=== PATIENT | male | born 1940 | race Caucasian/White ===

== ENCOUNTER → 2018-05-14 12:49 | Outpatient (CLI) | payer MEDICARE, OTHER, SELFPAY ==
--- NOTE | 2018-05-14 | DI.CT.S_ITS ---
PROCEDURE: CT SINUS SCREEN WO CON INDICATIONS: Hypertrophy of Nasal Turbinates TECHNIQUE: Noncontrast 3.0 mm axial images acquired from the frontal sinuses to the mid-sella, with coronal and sagittal reformats. For radiation dose reduction, the following was used: automated exposure control, adjustment of mA and/or kV according to patient size. COMPARISON: None. FINDINGS: Image quality: Excellent. Maxillary Sinuses: No bony remodeling or destruction. Sinuses are clear. Ethmoid Air Cells: No bony remodeling or destruction. Sinuses are clear. Sphenoid Sinuses: No bony remodeling or destruction. Sinuses are clear. Frontal Sinuses: No bony remodeling or destruction. Sinuses are clear. Ostiomeatal Complexes: Ostiomeatal complexes are patent. No Jemal cells. Miscellaneous: Visualized intra-orbital contents are normal. 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 Rightward deviation of the midline nasal septum is associated. 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 Dictated by: Milind Mckenna M.D. on 05/14/2018 at 13:30 Approved by: Milind Mckenna M.D. on 05/14/2018 at 13:32
== END ==
PROVIDERS: Visit Provider Otolaryngology
DX: J32.8 Other chronic sinusitis (principal); J34.3 Hypertrophy of nasal turbinates; J34.89 Other specified disorders of nose and nasal sinuses; J34.2 Deviated nasal septum
CPT/HCPCS: 70486

== ENCOUNTER → 2023-04-11 12:30 | Outpatient (CLI) | payer MEDICARE, OTHER, SELFPAY ==
--- NOTE | 2023-04-11 | DI.ECHO.S_ITS ---
[place] [facility]---------+ [facility] +---------+ : : [address] : : : : [id number] : : : : Phone: [phone]+ Echocardiogram Report + + :Name: YANNI FLANNERY Study Date: 04/11/2023 Height: 71 in : :[facility] ReadingLocation: Weight: 212 lb : : Gender: Male BSA: 2.2 m2 : :: 1940 Age: 83 yrs BP: 155/77 mmHg: :Reason For Study: DYSPNEA : :Ordering Physician: VIELKA, : :BHAKTI Performed By: Wanda Emery : :Referring: BHAKTI SORENSEN : + + Interpretation Summary 1) Normal left ventricular thickness, size, wall motion, and systolic function (EF 60-65%). 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 There is mild aortic regurgitation. 4) The right ventricular systolic pressure is estimated to be at least 28 mmHg based on an estimated right atrial pressure of 3 mm Hg. 5) No prior Echo available for comparison. Procedure: A two-dimensional transthoracic echocardiogram with color flow and Doppler was performed. The study quality was technically adequate. There is no prior echocardiogram noted for this patient. The heart rate ranged between 55-75 bpm during the study. Left Ventricle: The left ventricle is normal in size and wall thickness. The ejection fraction is estimated to be 55-60%. Left ventricular systolic function appears normal without focal wall motion abnormalities. Diastolic parameters suggest a relaxation abnormality of the left ventricle, consistent with probable normal filling pressures. Right Ventricle: The right ventricle is mildly dilated. Right ventricular systolic function is mildly reduced. Atria: The left atrial size is normal. The right atrium is borderline dilated. There is no Doppler evidence for an interatrial shunt. Mitral Valve: There is mild mitral annular calcification. The mitral valve leaflets appear borderline thickened, but open well. There is mild mitral regurgitation. Aortic Valve: There is a mechanical aortic valve. The prosthetic aortic valve is well-seated. The prosthetic aortic valve appears to open well. There is mild aortic regurgitation. Tricuspid Valve: The tricuspid valve is not well visualized, but is grossly normal. There is mild tricuspid regurgitation. The right ventricular systolic pressure is estimated to be at least 28 mmHg based on an estimated right atrial pressure of 3 mm Hg. Pulmonic Valve: The pulmonic valve leaflets are thin and pliable; valve motion is normal. There is trace pulmonic regurgitation. Great Vessels: The aortic root is normal size. The dimensions of the ascending aorta are normal. The IVC is of normal diameter and collapses greater than 50% with a sniff. This suggests a low right atrial pressure of 3 mm Hg. Pericardium/ Pleura There is no pericardial effusion. There is no pleural effusion. MMode/2D Measurements & Calculations LVIDd: 5.5 cm LVOT diam: 2.0 cm LVIDs: 4.0 cm asc Aorta Diam: 3.5 cm FS: 27.5 % Ao Arch Diam (Prox Trans): 2.3 cm IVSd: 0.97 cm LVPWd: 1.0 cm LV singh. diameter/BSA (cm/m^2): 2.6 LV sys. diameter/BSA (cm/m^2): 1.9 LA A2 area: 23.7 cm2 RA long axis: 7.1 cm LA A4 area: 23.7 cm2 RA area: 24.8 cm2 LA length (vol): 6.9 cm RA vol: 74.3 ml LA vol: 69.4 ml RA : 34.4 ml/m2 LA vol index: 32.1 ml/m2 IVC diam: 2.0 cm RVD1 (basal): 4.3 cm RVD2 (mid): 3.0 cm TAPSE: 1.4 cm Doppler Measurements & Calculations Ao V2 max: 221.4 cm/sec LVOT Max Jose Manuel: 60.2 cm/sec Ao V2 mean: 148.1 cm/sec LV V1 max P.4 mmHg Ao max P.6 mmHg LV V1 VTI: 13.8 cm Ao mean P.9 mmHg JAUN(I,D): 0.94 cm2 Ao V2 VTI: 44.6 cm JAUN(V,D): 0.82 cm2 sev ratio: 0.31 JAUN indexed to BSA (cm^2/m^2): 0.43 MV E max jose manuel: 110.4 cm/sec TR max jose manuel: 249.6 cm/sec MV A max jose manuel: 0.61 cm/sec TR max P.9 mmHg MV E/A: 182.4 PA V2 max: 94.6 cm/sec Med Peak E' Jose Manuel: 8.3 cm/sec PA V2 mean: 69.4 cm/sec E/E' med: 13.2 PA mean P.1 mmHg Lat Peak E' Jose Manuel: 9.9 cm/sec PA pr(Accel): 44.7 mmHg E/E' lat: 11.1 E/e' average: 12.2 MV dec time: 0.23 sec MVA(VTI): 2.0 cm2 MV V2 mean: 65.6 cm/sec SV(LVOT): 41.7 ml MV mean P.0 mmHg MV V2 VTI: 20.5 cm Reading Physician:04:06 PM
== END ==
PROVIDERS: PCP Physician Assistant; Referring Provider Internal Medicine Cardiovascular Disease; Visit Provider Internal Medicine Cardiovascular Disease
DX: R06.09 Other forms of dyspnea (principal); Z95.2 Presence of prosthetic heart valve; I08.3 Combined rheumatic disorders of mitral, aortic and tricuspid valves
CPT/HCPCS: 93306